=== PATIENT | male | born 1975 | race Caucasian/White ===

== ENCOUNTER 2016-07-24 20:09 | Emergency (ER) | payer OTHER ==
[~2016-07-24] VITALS: Ht 170.2 cm; Wt 74.8 kg
[2016-07-24 20:25] VITALS: BP 109/80
[2016-07-24] MEDS ORDERED: TRAM-29 PO (21:06)
--- NOTE | 2016-07-24 21:06 | PHYS DOC ---
Past Medical History Past Medical History: GERD, Hypertension, Other Additional Past Medical Histor: seasonal allergies Past Surgical History: Knee Replacement Additional Past Surgical Histo: R knee Additional Information: PAD smoker Alcohol Use: Occasionally Drug Use: None Adult General Chief Complaint Chief Complaint: HAND PROBLEM HPI HPI Patient is a 40 year old male with history of hypertension who presents with contusion of the left hand, patient states he got hit by a car door accidentally. He is complaining of pain on the left middle finger knuckle. Pain is worse on flexion and extension of the knuckle. He rates the pain as moderate. Review of Systems Review of Systems Constitutional: Denies fever or chills [] Musculoskeletal: contusion of the left pardo Integument: Denies rash or skin lesions [] Neurologic: Denies headache, focal weakness or sensory changes [] Endocrine: Denies polyuria or polydipsia [] Allergies Allergies Allergies Coded Allergies Type Severity Reaction Last Updated Verified No Known Drug Allergies 07/24/16 No Physical Exam Physical Exam Constitutional: Well developed, well nourished, no acute distress, non-toxic appearance. [] Skin: Warm, dry, no erythema, no rash. [] Back: No tenderness, no CVA tenderness. [] Extremities: Left hand with mild soft tissue swelling on the middle finger knuckle. There is bruising on the left middle finger knuckle on the dorsal aspect. Tenderness on palpation of the left middle finger knuckle. Full range of motion to the left hand and fingers including flexion and extension of the fingers at the MIP PIP and DIP joints. Adequate radial, medial, ulnar sensation to the left forearm. +2 left radial pulse. Cap refill less than 2 seconds left upper extremity. Neurologic: Alert and oriented X 3, normal motor function, normal sensory function, no focal deficits noted. [] Psychologic: Affect normal, judgement normal, mood normal. [] Current Patient Data Vital Signs Vital Signs Date Time Temp Pulse Resp B/P (MAP) Pulse Ox O2 Delivery O2 Flow Rate FiO2 07/24/16 20:25 98.5 87 20 97 Room Air 98.5 EKG EKG [] Radiology/Procedures Radiology/Procedures [] Course & Med Decision Making Course & Med Decision Making Pertinent Labs and Imaging studies reviewed. (See chart for details) Patient is in the ED with contusion of the left hand after being hit by a car door accidentally. Left hand x-rays interpreted by Dr. Ross are negative for any acute findings. Sudhakar wrap was applied to the left hand by the diploma pharmacy technician, neurovascular exam done by me is normal, cap refill<2 secs. Ice elevation encouraged. Follow-up with orthopedic doctor in one week if pain continues. Dragon Disclaimer Dragon Disclaimer This electronic medical record was generated, in whole or in part, using a voice recognition dictation system. Departure Departure Impression: Primary Impression: Contusion of left hand Disposition: HOME, SELF-CARE Condition: STABLE Referrals: NO PCP (PCP) OSWALD KAT II, MD Follow-up in one week if pain continues Patient Instructions: Contusion, [id number] Additional Instructions: You were seen for left hand contusion. Your x-rays of the left hand are negative for any acute findings. Wear the Sudhakar wrap provided in the emergency room as needed. Ice and elevate the extremity. Take the prescribed pain medicine as needed. Follow-up with the provided orthopedic doctor in one week if pain continues. Scripts Tramadol Hcl (ULTRAM) 50 Mg Tablet 1 TAB PO Q6HRS, #30 TAB Prov: BECCA LARRY APRN 07/24/16 Problem Qualifiers Primary Impression: Contusion of left hand Encounter type: initial encounter Qualified Codes: S60.222A - Contusion of left hand, initial encounter BECCA LARRY APRN July 24, 2016 21:06
--- NOTE | 2016-07-25 07:54 | RAD ---
Left hand, 3 views, 07/24/2016: History: Shut hand in car door No fracture or dislocation is identified. There is mild soft tissue swelling over the dorsum of the hand in the distal metacarpal region. IMPRESSION: No acute bony abnormality is detected.
== END 2016-07-24 21:10 | disposition home or self-care (01) ==
LOC: ER 20:09
DX: S60.222A Contusion of left hand, initial encounter (principal); I10 Essential (primary) hypertension; F17.200 Nicotine dependence, unspecified, uncomplicated; I73.9 Peripheral vascular disease, unspecified; K21.9 Gastro-esophageal reflux disease without esophagitis; Z96.651 Presence of right artificial knee joint; W22.8XXA Striking against or struck by other objects, initial encounter; Y93.89 Activity, other specified; Y92.89 Other specified places as the place of occurrence of the external cause; Y99.8 Other external cause status
CPT/HCPCS: 73130; 99284-25